=== PATIENT | male | born 1940 | race Caucasian/White ===

== ENCOUNTER → 2017-07-26 | Outpatient (CLI) | payer MEDICARE ==
--- NOTE | 2017-08-07 00:07 | ONC ---
[place] [address] RADIATION ONCOLOGY NOTE Name: DOTTIE CONLEY Room: [facility]#: [id number] Admission: 07/26/17 Attend Phys: Kd Luz MD Discharge: Date of : 44 Report #: [id number] THIS REPORT FOR: //name// CC: Kd Nichols DATE OF SERVICE: 07/26/2017 RADIATION ONCOLOGY FOLLOWUP NOTE REFERRING PHYSICIANS: Include Dr. Arturo Mccloud, Dr. Fabian Chaudhari and Dr. Mi Nichols. [facility] phone is [phone]. PRIMARY SITE AND HISTOPATHOLOGY: The patient had a stage I adenocarcinoma of the prostate. The Kennan score was 3+3 equals 6. PSA was 4.33 on 07/21/2011. The patient completed radiation treatments on 03/19/2012. INTERVAL NOTE: The patient is emptying his bladder well. MEDICATIONS: Include Centrum, aspirin, gemfibrozil, omeprazole, fish oil, Ocuvite, amlodipine, olmesartan, glimepiride and chlorthalidone. SOCIAL HISTORY: Cigarettes- he does not smoke cigarettes at this time. He quit smoking in 1989. He was in 2013. REVIEW OF SYSTEMS: GENITOURINARY: He rarely has nocturia. GASTROINTESTINAL: He has about 1-2 bowel movements a day. PHYSICAL EXAMINATION: VITAL SIGNS: The patient weighed 188 pounds on 07/26/2017 and 187.6 pounds on 07/21/2017. On 07/26/2017, blood pressure was 172/84, pulse 64, respirations 18. BACK: Had no tenderness to palpation. HEART: Had a regular rate and rhythm without murmur. LUNGS: were clear to auscultation. RECTAL: Prostate was not enlarged. There were no palpable nodules. The patient was guaiac negative using [employer] Hemoccult cards from lot number [id number] in July 2019 using [employer] Hemoccult developer from lot [id number] that expires in February 2020. LABORATORY DATA: The patient's PSA was 0.4 on 03/20/2017 and the PSA was 0.5 on 06/28/2016. ASSESSMENT AND PLAN: [place] [address] RADIATION ONCOLOGY NOTE Name: DOTTIE CONLEY Room: [facility]#: [id number] Admission: 07/26/17 Attend Phys: Kd Luz MD Discharge: Date of : 44 Report #: [id number] 1. History of prostate cancer- There is no evidence of prostate cancer at this time. The patient was given a requisition to have a PSA checked in about 8-12 months and he was asked to schedule a follow up appointment with me afterwards. 2. Diabetes- The patient takes glimepiride and that is managed by his referring physicians. 3. Hyperlipidemia- The patient takes gemfibrozil and that is managed by his referring physicians. 4. Chronic renal insufficiency- The patient's creatinine was about 2.22 on 03/21/2017. He follows up with his button tufter, Dr. Nichols with regards to that issue, and he indicated that has been pretty stable. Thank you for allowing me to participate in the care of this patient. <ELECTRONICALLY SIGNED> By: Kd Luz MD 08/07/17 [id number] Luz MD /nt
== END ==
LOC: M.RTH 07-20 09:30
DX: E11.22 Type 2 diabetes mellitus with diabetic chronic kidney disease (principal); E78.5 Hyperlipidemia, unspecified; N18.9 Chronic kidney disease, unspecified

== ENCOUNTER → 2018-12-05 | Outpatient (CLI) | payer MEDICARE | LOC: M.ULTRA 10:00 | DX: I65.23 Occlusion and stenosis of bilateral carotid arteries (principal) ==